=== PATIENT | female | born 1985 | race Caucasian/White ===

== ENCOUNTER → 2023-02-13 | Outpatient (CLI) | payer BC ==
--- NOTE | 2023-02-13 17:26 | Diagnostic Imaging Report ---
INDICATION: patient, screening. TECHNIQUE: Multiple real-time grayscale images were obtained over the gravid uterus. COMPARISON: There is no previous study for comparison. FINDINGS: Single live intrauterine fetus is seen measuring 21 weeks 1 day by composite dates. Fetus is in variable presentation. Amniotic fluid is 18.18 cm. heart rate is 140 bpm. Cervix measures about 8 cm in length. The placenta is posterior, the placental tip is low-lying, near the internal os. anatomic survey demonstrated normal-appearing kidneys and bladder. Normal-appearing stomach is seen. Intracranial ventricles appear normal. Four-chamber heart view. Three-vessel cord and cord insertion appear normal. Views of the spine were unremarkable. Biometrical measurements are as follows: Biparietal 5.04 cm, age 21 weeks 2 days. Head circumference 18.48 cm, age 20 weeks 6 days. Abdominal circumference 15.93 cm, age 21 weeks 1 days. Femur length 3.55 cm, age 21 weeks 2 days. Sonographic estimate age: 21 weeks 1 days. Sonographic estimated date of delivery: 06/25/2023. Estimated Weight: 400 gm (+/- 59 gm). LMP percentile: 87%. heart rate: 140 beats per minute. number: 1 of 1. IMPRESSION: Single live intrauterine fetus measuring 21 weeks 1 day in size. There is no anatomic abnormality of the fetus. Placenta is low-lying and near the internal os, would recommend followup studies to ensure resolution of this finding. There is no other significant abnormality. Dictated by: Dictated on workstation # [id number]
== END ==
LOC: RAD 14:20
PROVIDERS: ATTEND Nurse Practitioner Women's Health
DX: Z34.02 Encounter for supervision of normal first pregnancy, second trimester (principal); Z3A.21 21 weeks gestation of pregnancy
CPT/HCPCS: 76805

== ENCOUNTER 2023-07-07 19:00 | Inpatient (IN) | payer BC ==
[~2023-07-07] VITALS: Ht 165 cm; Wt 99.7 kg
[2023-07-07 21:14] LABS: BASOPHILS # (AUTO) 0.1 10^3/uL (0.0-0.1); BASOPHILS % (AUTO) 1 % (0-10); EOSINOPHILS # (AUTO) 0.1 10^3/uL (0.0-0.3); EOSINOPHILS % (AUTO) 1 % (0-10); HEMATOCRIT 38 % (35-52); HEMOGLOBIN 12.1 g/dL (11.5-16.0); LYMPHOCYTES # (AUTO) 1.7 10^3/uL (1.0-4.0); LYMPHOCYTES % (AUTO) 16 % (12-44); MEAN CORPUSCULAR HEMOGLOBIN 26 pg (25-34); MEAN CORPUSCULAR HGB CONC 32 g/dL (32-36); MEAN CORPUSCULAR VOLUME 80 fL (80-99); MEAN PLATELET VOLUME 11.8 fL (9.0-12.2); MONOCYTES # (AUTO) 0.7 10^3/uL (0.0-1.0); MONOCYTES % (AUTO) 7 % (0-12); NEUTROPHILS # (AUTO) 7.8 10^3/uL (1.8-7.8); NEUTROPHILS % (AUTO) 75 % (42-75); PLATELET COUNT 323 10^3/uL (130-400); WHITE BLOOD COUNT 10.4 10^3/uL (4.3-11.0)
[2023-07-07] MEDS ORDERED: LACTATED RINGERS 1,000 ML 500 ML IV PRN (21:15)
[2023-07-07] MEDS ORDERED: MINERAL OIL 30 ML UDC TOP PRN (21:15)
[2023-07-07] MEDS ORDERED: AMPICILLIN (IV) 2,000 MG in NS (IVPB) 50 ML 50 ML IV SCH (21:26)
[2023-07-07 21:27] LABS: CLARITY,URINE CLEAR; COLOR,URINE YELLOW; GLUCOSE, URINE (UA) NEGATIVE (NEGATIVE); KETONES,URINE NEGATIVE (NEGATIVE); NITRITE,URINE NEGATIVE (NEGATIVE); PROTEIN,URINE NEGATIVE (NEGATIVE)
[2023-07-07 21:28] LABS: AMORPHOUS SEDIMENT,UR FEW AMOR URATES /LPF; BACTERIA,URINE FEW /HPF; BILIRUBIN,URINE NEGATIVE (NEGATIVE); LEUKOCYTE ESTERASE ,URINE 2+ (NEGATIVE); RBC,URINE 0-2 /HPF
[2023-07-07] MEDS ORDERED: NS IV 1000 ML 500 ML IV SCH (21:30)
[2023-07-07] MEDS ORDERED: NS IV 1000 ML 1,000 ML ONE (21:42)
[2023-07-07] MEDS ORDERED: CATHETER FLUSH 10 ML SYR IV SCH (22:00)
[2023-07-07] MEDS: D5 LR 1,000 ML IV SOLN 1,000 ML IV SCH (22:39)
[2023-07-07 23:01] VITALS: BP 137/83
[2023-07-08] VITALS (39 sets, daily range): BP systolic 71–151; BP diastolic 40–90
[2023-07-08] MEDS: AMPICILLIN (IV) 1,000 MG in NS (IVPB) 50 ML 50 ML IV SCH ×3 (02:45→10:27)
[2023-07-08] MEDS: D5 LR 1,000 ML IV SOLN 1,000 ML IV SCH ×2 (03:30→10:22)
[2023-07-08] MEDS ORDERED: OXYTOCIN DRIP PRE-MIX 500 ML IV SCH (08:15)
--- NOTE | 2023-07-08 08:18 | History & Physical-OB ---
OB - Chief Complaint & HPI Date/Time Date of Admission: Date of Admission: Jul 07, 2023 at 19:02 Date seen by a Provider: Jul 08, 2023 Time Seen by a Provider: 08:00 Chief Complaint/History OB-Reason for Admission/Chief: Induction of Labor Hx : 1 Hx Para: 0 Expected Date of Delivery: Jul 01, 2023 Gestational Age in Weeks: 40 Gestational Age in Days: 6 Indication for induction: post dates Admission Nurse Assessment Rev: Yes History of Labs A pos Antibody neg RI RPR NR HBsAg NR HIV NR GC neg GBS pos(urine) Allergies and Home Medications Allergies Coded Allergies: No Known Drug Allergies (Unverified , 07/07/23) Patient Home Medication List Home Medication List Reviewed: Yes OB - History Hx of Present Care: Yes Ultrasounds: Normal mid trimester US Obstetrical Complications: None Medical Complications: None Patient Past Medical History nc Immunizations Influenza Vaccine Up-to-Date: No; Not Current COVID19 Vaccine [employer] [place]: [place] OB - Admission Exam Physical Exam Vitals: Vital Signs 07/07/23 07/08/23 23:01 05:16 Temp 36.1 Pulse 56 Resp 16 B/P (MAP) 121/78 (92) Pulse Ox 98 O2 Delivery Room Air HEENT: NCAT Heart: Rhythm Normal Lungs: Clear Abdomen: Gravid Extremities: Normal Reflexes: Normal Cervical Dilatation: 1cm Effacement: 75% Station: -2 Membranes: Intact Heart Rate: 130's Accelerations: Accelerations Present Decelerations: No Decelerations Short Term Variability: Present Retirement Variability: Average (6-25) Contractions on Admission: 6-10 Minutes Apart Intensity: Mild Labs Laboratory Tests Test 07/07/23 21:00 Range/Units White Blood Count 10.4 4.3-11.0 10^3/uL Red Blood Count 4.72 3.80-5.11 10^6/uL Hemoglobin 12.1 11.5-16.0 g/dL Hematocrit 38 35-52 % Mean Corpuscular Volume 80 80-99 fL Mean Corpuscular Hemoglobin 26 25-34 pg Mean Corpuscular Hemoglobin Concent 32 32-36 g/dL Red Cell Distribution Width 13.8 10.0-14.5 % Platelet Count 323 130-400 10^3/uL Mean Platelet Volume 11.8 9.0-12.2 fL Immature Granulocyte % (Auto) 0 % Neutrophils (%) (Auto) 75 42-75 % Lymphocytes (%) (Auto) 16 12-44 % Monocytes (%) (Auto) 7 0-12 % Eosinophils (%) (Auto) 1 0-10 % Basophils (%) (Auto) 1 0-10 % Neutrophils # (Auto) 7.8 1.8-7.8 10^3/uL Lymphocytes # (Auto) 1.7 1.0-4.0 10^3/uL Monocytes # (Auto) 0.7 0.0-1.0 10^3/uL Eosinophils # (Auto) 0.1 0.0-0.3 10^3/uL Basophils # (Auto) 0.1 0.0-0.1 10^3/uL Immature Granulocyte # (Auto) 0.0 0.0-0.1 10^3/uL Urine Color YELLOW Urine Clarity CLEAR Urine pH 6.0 5-9 Urine Specific [place] 1.015 L 1.016-1.022 Urine Protein NEGATIVE NEGATIVE Urine Glucose (UA) NEGATIVE NEGATIVE Urine Ketones NEGATIVE NEGATIVE Urine Nitrite NEGATIVE NEGATIVE Urine Bilirubin NEGATIVE NEGATIVE Urine Urobilinogen 0.2 < = 1.0 MG/DL Urine Leukocyte Esterase 2+ H NEGATIVE Urine RBC (Auto) TRACE H NEGATIVE Urine RBC 0-2 /HPF Urine WBC 2-5 /HPF Urine Squamous Epithelial Cells 5-10 /HPF Urine Crystals PRESENT H /LPF Urine Amorphous Sediment FEW VIC URATES H /LPF Urine Bacteria FEW H /HPF Urine Casts NONE /LPF Urine Mucus SMALL H /LPF Urine Culture Indicated YES Syphilis Total Antibody Negative Negative OB - Assessment/Plan/Diagnosis Assessment Admission Dx 38 yo @ 41 weeks Post dates GBS pos Admission Status: Inpatient Order (span 2 midnights) Reason for Inpatient Admission: IOL at 41 weeks Plan Plan: Induction Induction Method: per Misoprostol Protocol GLO CAST DO Jul 08, 2023 08:18
[2023-07-08] MEDS ORDERED: fentaNYL 2 mcg/ml BUPIVA 0.125 100 ML ONE (09:21)
[2023-07-08] MEDS ORDERED: fentaNYL INJECTION 100 MCG/2 ML VIAL ONE (10:00)
[2023-07-08] MEDS ORDERED: LIDOCAINE PF 2% 5 ML VIAL ONE ×2 (10:00→11:35)
[2023-07-08] MEDS ORDERED: METOCLOPRAMIDE INJ 10 MG/2 ML ONE (11:12)
[2023-07-08] MEDS ORDERED: CITRIC ACID/SODIUM CITRATE ORAL SOLN 30 ML ONE (11:12)
[2023-07-08] MEDS ORDERED: FAMOTIDINE INJ 20MG/2ML VIAL ONE (11:13)
[2023-07-08] MEDS ORDERED: AZITHROMYCIN INJECTION 500 MG VIAL ONE (11:13)
[2023-07-08] MEDS ORDERED: ceFAZolin INJECTION 2,000 MG ONE (11:13)
[2023-07-08] MEDS ORDERED: NS (IVPB) 250 ML 250 ML ONE (11:13)
[2023-07-08] MEDS ORDERED: NS (IVPB) 50 ML 50 ML ONE (11:13)
[2023-07-08] MEDS ORDERED: BUPIVACAINE 0.5% 30 ML VIAL ONE (11:35)
[2023-07-08] MEDS ORDERED: ONDANSETRON INJECTION 4 MG/2 ML (SDV) ONE (11:38)
[2023-07-08] MEDS ORDERED: OXYTOCIN DRIP PRE-MIX 1,000 ML IV ONE (11:53)
--- NOTE | 2023-07-08 12:24 | Progress Note ---
Standard Progress Note Progress Notes/Assess & Plan Date Seen by a Provider: Jul 08, 2023 Time Seen by a Provider: 10:40 Progress/Assessment & Plan Acute distress noted after epidural placement despite position changes, fluid bolus, and supplemental O2. Decision made to proceed urgently with GLO CAST DO Jul 08, 2023 12:24
[2023-07-08] MEDS ORDERED: METOCLOPRAMIDE INJ 10 MG/2 ML IV ONE (12:30)
[2023-07-08] MEDS ORDERED: LACTATED RINGERS 1,000 ML 1,000 ML IV ONE (12:30)
[2023-07-08] MEDS ORDERED: ONDANSETRON INJECTION 4 MG/2 ML (SDV) IVP PRN (12:30)
[2023-07-08] MEDS ORDERED: Tetanus/Diphtheria/Pertussis (Acell) ADULT Vaccine 0.5 ML IM SCH (12:30)
[2023-07-08] MEDS ORDERED: FAMOTIDINE INJ 20MG/2ML VIAL IV ONE (12:30)
[2023-07-08] MEDS ORDERED: LACTATED RINGERS 1,000 ML 1,000 ML IV PRN (12:30)
[2023-07-08] MEDS ORDERED: NALOXONE 0.4 MG/ML 1 ML VIAL IV PRN ×2 (12:30)
[2023-07-08] MEDS ORDERED: CITRIC ACID/SODIUM CITRATE ORAL SOLN 30 ML PO ONE (12:30)
[2023-07-08] MEDS ORDERED: fentaNYL 2 mcg/ml BUPIVA 0.125 100 ML EPI SCH (12:30)
[2023-07-08] MEDS ORDERED: MEASLES, MUMPS, RUBELLA VACCINE (MMR) SC SCH (12:30)
[2023-07-08] MEDS: KETOROLAC INJ 30 MG/ML VIAL IV SCH ×2 (13:27→19:01)
[2023-07-08] MEDS: OXYTOCIN DRIP PRE-MIX 500 ML IV SCH ×2 (13:27→16:59)
[2023-07-08] MEDS: CATHETER FLUSH 10 ML SYR IV SCH ×2 (14:00→21:00)
[2023-07-08] MEDS: HYDROcodone/ACETAMINOPHEN 5 MG/325 MG TABLET PO PRN (15:47)
[2023-07-08] MEDS ORDERED: METHYLERGONOVINE INJ 0.2 MG/ML AMP ONE (16:41)
[2023-07-08 17:23] LABS: HEMOGLOBIN 10.3 g/dL (11.5-16.0)
--- NOTE | 2023-07-08 19:05 | OPERATIVE REPORT ---
PREOPERATIVE DIAGNOSES: 1. A 38-year-old at 41 weeks gestation. 2. intolerance to labor. POSTOPERATIVE DIAGNOSES: 1. A 38-year-old at 41 weeks gestation. 2. intolerance to labor. PROCEDURE: Primary low transverse section. SURGEON: Tyler Cast DO ANESTHESIA: Epidural, which was bolused. ESTIMATED BLOOD LOSS: 400 mL URINE OUTPUT: 500 mL clear at the end of the procedure. FLUIDS: 1700 mL lactated Ringer's solution. FINDINGS: A live male weighing 6 pounds 11 ounces, Apgars of 8 and 9. Grossly normal appearing uterus, bilateral fallopian tubes and ovaries. A nuchal cord reduced x1. SPECIMEN SENT: Placenta. INDICATIONS FOR PROCEDURE: This 38-year-old female patient was brought in for induction of labor due to postdates at 41 weeks. She received misoprostol overnight 2 doses and had some intermittent heart rate decelerations. Upon evaluation this morning, she was to be 1-2 cm and artificial rupture of membranes was performed, clear fluid was noted. Pitocin augmentation was attempted to be administered; however, heart rate decelerations were occurring recurrently with contractions, some were deep variable decelerations and some were prolonged. Due to the patient being remote from delivery and having recurrent heart rate decelerations and a nonreassuring heart rate status was discussed with the patient and proceeded with primary . Risks of procedure were discussed with the patient in detail versus the risk of waiting and the potential risks of the . After all of her questions were answered, she was agreeable to proceed. Consent was obtained. The patient was taken to the operating room. OPERATIVE DESCRIPTION IN DETAIL: Once in the operating room, where epidural analgesia was bolused and found to be adequate, was placed in supine position with leftward tilt, prepped and draped in normal sterile fashion. A timeout was performed. Anesthesia was tested. I then make a Pfannenstiel skin incision with a knife and carried underlying fascia using Bovie cautery. The fascial incision extended laterally using Bovie cautery. The superior aspect of fascial incision was then grasped with Shruthi clamps, tented up and dissected off the underlying rectus muscles. The inferior aspect of the fascial incision was then grasped with Shruthi clamps, tented up and dissected off the underlying rectus muscles. Rectus muscles were dissected down the midline sharply, which exposed the peritoneum, which I entered bluntly and extended using blunt traction. Nathen ring retractor was placed in the peritoneal incision, which offers excellent lateral sidewall retraction. I identified the lower uterine segment, found to be thinned out. I make a low transverse incision to the vesicouterine peritoneum and bluntly dissected off the lower uterine segment, creating a bladder flap. I then proceeded my myotomy until membranes were visualized, at which point I thinned uterine incision laterally and superiorly using bandage scissors. Infant was found in vertex presentation. With gentle fundal pressure, the 's head was elevated up the incision where delivered through the incision. The nares and oropharynx were bulb suctioned. A nuchal cord was reduced x1. Anterior and posterior shoulders were delivered. was brought to the operative field where the cords were clamped and cut and was handed off to waiting nurses in attendance. Cord blood was collected. Three-vessel cord with intact placenta was delivered spontaneously thereafter. IV Pitocin was initiated to facilitate uterine contraction. Uterine fundus confirmed by manual massage. The uterus was then exteriorized and cleared of all endometrial clots and debris. I then proceeded with closing the uterine incision using 0 Vicryl suture in a running locked fashion. Second layer of imbricating 0 Monocryl was placed. Excellent hemostasis was noted after doing this. I then placed the uterus back in pelvis and copiously irrigated the pelvis using normal saline. Once again, there was no active bleeding noted from my dissection planes. I placed Interceed antiadhesive over my low transverse incision. I removed the Nathen retractor and then proceeded with closing the peritoneum using 3-0 Vicryl suture in a running fashion. Rectus muscles were reapproximated using 3-0 Vicryl suture in interrupted fashion. The fascia was reapproximated using 0 Vicryl suture in a running fashion. The subcutaneous tissue was reapproximated using 3-0 plain interrupted subcutaneous stitch and skin reapproximated using 4-0 Monocryl in a running subcuticular. Dermabond was applied to incision, sterile dressing with adhesive white tape. The patient tolerated the procedure well and sent to recovery area in stable condition. Lap and sponge counts were correct at the end of the procedure. Instrument counts correct as well. Two grams of Ancef and 500 mg of azithromycin were given preoperatively for infection prophylaxis. Job ID: [id number] DocumentID: [id number] Dictated Date: 07/08/2023 12:38:47 Children'S Attendant Date: 07/08/2023 19:03:00 Dictated By: TYLER CAST DO
[2023-07-08] MEDS ORDERED: SIMETHICONE 80 MG CHEWABLE TABLET ONE (20:27)
[2023-07-08] MEDS: SIMETHICONE 80 MG CHEWABLE TABLET PO SCH (20:36)
[2023-07-08] MEDS: DOCUSATE SODIUM 100 MG CAPSULE PO SCH (20:36)
[2023-07-09 00:01] VITALS: BP 113/65
[2023-07-09] MEDS: KETOROLAC INJ 30 MG/ML VIAL IV SCH ×2 (00:01→05:05)
[2023-07-09 05:00] VITALS: BP 112/71
[2023-07-09] MEDS: CATHETER FLUSH 10 ML SYR IV SCH (05:05)
[2023-07-09] MEDS: HYDROcodone/ACETAMINOPHEN 5 MG/325 MG TABLET PO PRN ×4 (05:10→18:20)
[2023-07-09 05:54] LABS: BASOPHILS % (AUTO) 0 % (0-10); EOSINOPHILS % (AUTO) 0 % (0-10); HEMATOCRIT 25 % (35-52); LYMPHOCYTES # (AUTO) 1.4 10^3/uL (1.0-4.0); LYMPHOCYTES % (AUTO) 12 % (12-44); MEAN CORPUSCULAR HEMOGLOBIN 26 pg (25-34); MEAN CORPUSCULAR HGB CONC 32 g/dL (32-36); MEAN CORPUSCULAR VOLUME 80 fL (80-99); MEAN PLATELET VOLUME 11.5 fL (9.0-12.2); MONOCYTES % (AUTO) 9 % (0-12); NEUTROPHILS # (AUTO) 8.9 10^3/uL (1.8-7.8); NEUTROPHILS % (AUTO) 78 % (42-75); PLATELET COUNT 233 10^3/uL (130-400); WHITE BLOOD COUNT 11.5 10^3/uL (4.3-11.0)
[2023-07-09 08:15] VITALS: BP 116/60
[2023-07-09] MEDS: SIMETHICONE 80 MG CHEWABLE TABLET PO SCH ×4 (08:24→21:07)
[2023-07-09] MEDS: DOCUSATE SODIUM 100 MG CAPSULE PO SCH ×2 (08:25→21:07)
--- NOTE | 2023-07-09 08:41 | Postpartum Progress Note ---
Note Note Day #1 Subjective: Patient is without complaints. Ambulating, voiding. Tolerating a regular diet without nausea or vomiting. Normal lochia. Pain is well controlled with oral pain medications. Objective: Physical Exam: General - Alert and oriented, no apparent distress Abdomen - Soft, appropriately tender to palpation, non-distended, fundus firm at umbilicus Extremities - no edema, negative Jaymie's bilaterally Incision- c/d/i Assessment: POD 1 PLTCS Acute blood loss anemia Plan: Routine care. Encourage breast feeding. Encourage ambulation. Ferrous sulfate supplementation. Plan for discharge tomorrow Vitals - Labs Vital Signs - I&O Vital Signs Date Time Temp Pulse Resp B/P (MAP) Pulse Ox O2 Delivery O2 Flow Rate FiO2 07/09/23 08:15 36.7 78 18 116/60 (78) 98 Room Air 07/09/23 05:00 36.6 76 18 112/71 (85) 97 Room Air 07/09/23 00:01 36.8 72 18 113/65 (81) 99 Room Air 07/08/23 20:36 36.8 84 18 116/73 (87) 98 Room Air 07/08/23 17:33 36.0 60 18 109/58 (75) Room Air 07/08/23 17:08 72 106/58 (74) 97 07/08/23 16:48 36.9 73 16 98/55 (69) 99 Room Air 07/08/23 16:40 66 82/53 (63) 97 07/08/23 16:36 66 71/40 (50) 99 07/08/23 16:34 61 77/46 (56) 98 07/08/23 16:32 65 76/43 (54) 100 07/08/23 16:30 64 80/45 (57) 07/08/23 15:55 36.3 89 18 128/58 (81) 97 Room Air 07/08/23 13:31 35.9 15 101/77 (85) 99 Room Air 07/08/23 13:16 36.0 15 106/76 (86) 100 Room Air 07/08/23 13:01 35.9 20 109/74 (86) 100 Room Air 07/08/23 12:46 35.8 12 117/69 (85) 99 Room Air 07/08/23 12:34 35.7 14 119/68 (85) 100 Room Air 07/08/23 11:40 56 122/59 (80) Room Air 07/08/23 11:20 60 132/80 (97) Room Air 07/08/23 11:05 54 124/79 (94) 99 Room Air 07/08/23 11:00 50 116/66 (83) 100 Non Rebreather 15.00 07/08/23 10:55 49 120/67 (84) 100 Non Rebreather 15.00 07/08/23 10:50 51 119/63 (81) 99 Non Rebreather 15.00 07/08/23 10:45 51 119/59 (79) 100 Non Rebreather 15.00 07/08/23 10:40 51 120/58 (78) 100 Non Rebreather 15.00 07/08/23 10:35 51 119/64 (82) 100 Room Air 07/08/23 10:28 55 130/72 (91) 97 Room Air 07/08/23 10:25 53 130/70 (90) 98 Room Air 07/08/23 10:22 129/74 (92) 98 Room Air 07/08/23 10:19 58 129/73 (91) 97 Room Air 07/08/23 10:16 54 100/55 (70) 96 Room Air 07/08/23 10:13 55 100/53 (69) 96 Room Air 07/08/23 10:10 57 102/53 (69) 97 Room Air 07/08/23 10:06 54 125/75 (92) 97 Room Air 07/08/23 10:03 49 133/80 (97) 99 Room Air 07/08/23 10:00 49 126/74 (91) 96 Room Air 07/08/23 09:50 58 151/88 (109) 98 Room Air I & O 07/09/23 07:00 Intake Total 4750 ml Output Total 500 ml Balance 4250 ml Labs Laboratory Tests 07/08/23 17:16: Hemoglobin 10.3L, Hematocrit 32L 07/09/23 05:45: Hemoglobin 8.0#L, Hematocrit 25L, White Blood Count 11.5H, Red Blood Count 3.09L , Mean Corpuscular Volume 80, Mean Corpuscular Hemoglobin 26, Mean Corpuscular Hemoglobin Concent 32, Red Cell Distribution Width 14.2, Platelet Count 233, Mean Platelet Volume 11.5, Immature Granulocyte % (Auto) 1, Neutrophils (%) (Auto) 78H, Lymphocytes (%) (Auto) 12, Monocytes (%) (Auto) 9, Eosinophils (%) (Auto) 0, Basophils (%) (Auto) 0, Neutrophils # (Auto) 8.9H, Lymphocytes # (Auto) 1.4, Monocytes # (Auto) 1.0, Eosinophils # (Auto) 0.0, Basophils # (Auto) 0.0, Immature Granulocyte # (Auto) 0.1 GLO CAST DO Jul 09, 2023 08:41
--- NOTE | 2023-07-09 08:42 | Discharge Inst-Women's Service ---
Discharge Inst-Women's Serv Depart Medication/Instructions New, Converted or Re-Newed RX: Transmitted to Pharmacy Final Diagnosis POD 2 PLTCS Problems Reviewed?: Yes Consults/Follow Up Additional Follow Up: Yes Orders/Referrals Dr. Hermosillo in 7-10 days and in 6 weeks Activity Activity: Activity as Tolerated Driving Instructions: No Driving for 1 Week NO SMOKING: NO SMOKING Nothing Inside Vagina: No Douching, No Collbran, No Tampons Diet Discharge Diet: No Restrictions Symptoms to Report to : Bleeding Excessive, Pain Increased, Fever Over 101 Degrees F, Vaginal Bleeding Increase, Questions/Concerns For Any Problems or Questions: Contact Your Physician Skin/Wound Care Infection Signs and Symptoms: Increased Redness, Foul Odor of Wound, Increased Drainage, Skin Itchy or Has a Rash, Increased Swelling, Temperature Above 101 F Operative Area Clean and Dry: Keep Incision Clean/Dry Stitches/[place]/Dermabond: Dermabond, Care of Stitches Bathing Instructions: GLO Lopez DO Jul 09, 2023 08:42
[2023-07-09] MEDS ORDERED: ACHD5005 PO (08:43)
[2023-07-09] MEDS ORDERED: IBUP-844 PO (08:43)
[2023-07-09] MEDS ORDERED: FERR-74 PO (08:43)
[2023-07-09] MEDS ORDERED: DOCU100C37 PO (08:43)
[2023-07-09] MEDS: IBUPROFEN 600 MG TABLET PO SCH ×2 (11:40→18:19)
[2023-07-09 13:00] VITALS: BP 122/64
[2023-07-09] MEDS: FERROUS SULFATE 325 MG (IRON) TABLET PO SCH ×2 (13:17→18:19)
--- NOTE | 2023-07-09 14:19 | Anesthesia-Regional Post-Op ---
Regional Patient Condition Mental Status: Alert, Oriented x3 Circulation: Same as Pre-Op Headache: Absent Sensation: Full Recovery Motor Block: Absent Post Op Complications Complications None Follow Up Care/Instructions Patient Instructions None needed. Anesthesia/Patient Condition Patient is doing well, no complaints, stable vital signs, no apparent adverse anesthesia problems. No complications reported per nursing. FAYE KILLIAN CRNA Jul 09, 2023 14:19
[2023-07-09 18:00] VITALS: BP 119/78
[2023-07-09 21:04] VITALS: BP 130/66
[2023-07-10] MEDS: IBUPROFEN 600 MG TABLET PO SCH ×2 (01:41→08:05)
[2023-07-10 04:12] VITALS: BP 114/57
[2023-07-10] MEDS: HYDROcodone/ACETAMINOPHEN 5 MG/325 MG TABLET PO PRN (04:17)
[2023-07-10] MEDS: DOCUSATE SODIUM 100 MG CAPSULE PO SCH (08:05)
[2023-07-10] MEDS: SIMETHICONE 80 MG CHEWABLE TABLET PO SCH (08:05)
[2023-07-10] MEDS: FERROUS SULFATE 325 MG (IRON) TABLET PO SCH (08:05)
--- NOTE | 2023-07-10 08:18 | Postpartum Progress Note ---
Post Op Post-operative Day #2 Subjective: Patient is post day #2 doing well no concerns. Her pain is well controlled. Tolerating regular diet. Breast-feeding going well Objective: Vital signs stable afebrile Physical Exam: General - Alert and oriented, no apparent distress Heart regular rate and rhythm Lungs clear to auscultation bilaterally Breast symmetrical no erythema or edema or engorgement Abdomen - Soft, appropriately tender to palpation, non-distended, fundus firm at umbilicus Incision - clean, dry and intact; no erythema or induration, no drainage Lochia minimal Extremities - no edema, negative Jaymie's bilaterally Assessment: [] post-operative day # 2 status post low transverse section Recovering well, hemodynamically stable Plan: Routine post-operative care. Encourage breast feeding. Encourage ambulation. VTE prophylaxis: SCDs. Ferrous sulfate supplementation. Plan for discharge Today Vitals - Labs Vital Signs - I&O Vital Signs Date Time Temp Pulse Resp B/P (MAP) Pulse Ox O2 Delivery O2 Flow Rate FiO2 07/10/23 04:12 36.0 73 18 114/57 (76) 97 Room Air 07/09/23 21:04 36.8 70 20 130/66 (87) 97 Room Air 07/09/23 18:00 37.1 73 18 119/78 (92) 99 Room Air 07/09/23 13:00 36.6 71 18 122/64 (83) 98 Room Air I & O 07/10/23 07:00 Output Total 600 ml Balance -600 ml Labs Microbiology 07/07/23 Urine Culture - Final, Complete 3 or more isolates Group B Streptococci LUIS ARRIAGA DO Jul 10, 2023 08:18
[2023-07-10 10:00] VITALS: BP 148/67
[2023-07-10] MEDS ORDERED: ACHD5005 PO (14:43)
== END 2023-07-10 13:30 | disposition home or self-care (01) | DRG 787 ==
LOC: LDRP 19:02 → WS 07-08 14:35
PROVIDERS: ADMIT Obstetrics & Gynecology; ATTEND Obstetrics & Gynecology
PROC: 10D00Z1 Extraction of Products of Conception, Low, Open Approach (ICD-10-PCS; principal; 2023-07-07)
DX: O48.0 Post-term pregnancy (principal); D62 Acute posthemorrhagic anemia; Z3A.41 41 weeks gestation of pregnancy; Z37.0 Single live birth; O99.824 Streptococcus B carrier state complicating childbirth; O77.9 Labor and delivery complicated by fetal stress, unspecified; O90.81 Anemia of the puerperium
CPT/HCPCS: 36415; 81000; 85014; 85018; 85025; 86780; 86850; 86900; 86901; 87088; 94664